=== PATIENT | male | born 1990 | race African-American/Black ===

== ENCOUNTER 2016-07-29 11:11 | Emergency (ER) | payer SELFPAY ==
[~2016-07-29] VITALS: Ht 182.9 cm; Wt 77.0 kg
[2016-07-29 14:29] LABS: ADD MIUA? YES; BILIRUBIN NEGATIVE; BLOOD NEGATIVE; COLOR YELLOW ((YELLOW)); GLUCOSE (STRIP) NEGATIVE; KETONES NEGATIVE; LEUKOCYTES TRACE; NITRITE NEGATIVE; PROTEIN (STRIP) 30; SPECIFIC GRAVITY 1.027 (1.000-1.030); UROBILINOGEN 0.2 MG/DL (0.2-1.0)
[2016-07-29 14:41] LABS: BACTERIA NONE SEEN /HPF; EPITHELIAL CELLS NONE SEEN /HPF; MUCUS TRACE /LPF; RED BLOOD CELLS 15-20 /HPF (0-5); UCUL ADDED? NO; WHITE BLOOD CELLS 30-40 /HPF (0-5)
[2016-07-29] MEDS ORDERED: PYRIDIUM100 MG PO (15:59)
[2016-07-29 16:06] VITALS: BP 130/80
[2016-07-30 12:55] LABS: CHLAMYDIA TRACHOMATIS NEGATIVE; NEISSERIA GONORRHOEAE NEGATIVE
== END 2016-07-29 16:06 | disposition home or self-care (01) ==
LOC: EME 11:11
PROVIDERS: Nurse Practitioner Family
DX: R36.9 Urethral discharge, unspecified (principal); R10.30 Lower abdominal pain, unspecified; R30.0 Dysuria; Z11.3 Encounter for screening for infections with a predominantly sexual mode of transmission; F17.200 Nicotine dependence, unspecified, uncomplicated
CPT/HCPCS: 81003; 87491; 87591; 99281; 99284; J0696